=== PATIENT | male | born 1960 | race Caucasian/White ===

== ENCOUNTER → 2016-08-07 | Outpatient (CLI) | payer BC ==
--- NOTE | 2016-08-07 15:01 | DI ---
EXAM: MRI LUMBAR SPINE W/O CONTRAST DATE: 08/07/2016 12:00 AM ENCOUNTER: Initial COMPARISON: 06/14/2015 INDICATION: ITS.REASON: LUMBAR RADICULAR SYNDROME, low back pain with left leg pain and numbness, numbness in the left foot, no known injury TECHNIQUE: Multi-planar multi-weighted magnetic resonance imaging of the lumbar spine was performed without intravenous contrast using the standard lumbar spine protocol. FINDINGS: No acute fracture. Lordosis of the lumbar spine is maintained. No significant spondylolisthesis. Multilevel degenerative disc desiccation with mild disc space height loss inferiorly. Scattered Schmorl's node deformities and intraosseous hemangiomas. No other suspicious marrow replacing process or osseous lesions. The conus terminates at L1. No clumping of intrathecal nerve roots. Limited views of the abdomen and pelvis are unremarkable. Degenerative changes at each level are as follows: L1-L2: No significant disc bulging, spinal canal stenosis, or neural foraminal narrowing. L2-L3: Bilateral facet arthropathy without significant disc bulging, spinal canal stenosis, or neural foraminal narrowing. L3-L4: Unchanged mild disc bulge and facet arthropathy without resulting significant spinal canal stenosis or neural foraminal narrowing. L4-L5: Interval significant improvement/near resolution in the prior focal central disc protrusion with unchanged bilateral facet arthropathy now resulting in mild to moderate left neural foraminal narrowing without significant spinal canal stenosis. L5-S1: Disc bulge with annular tear and interval development of a focal left paracentral disc protrusion resulting in pronounced left lateral recess narrowing with abutment of the traversing left S1 nerve roots. Unchanged facet arthropathy resulting in mild to moderate bilateral neural foraminal narrowing. IMPRESSION: 1. Interval development of a focal left paracentral disc protrusion at L5-S1 resulting in pronounced left lateral recess narrowing with abutment of the traversing left S1 nerve roots. 2. Interval significant improvement/near resolution in the prior focal central disc protrusion at L4-L5 now with no resulting spinal canal stenosis. 3. Unchanged facet arthropathy resulting in mild to moderate left neural foraminal narrowing at L4-L5 and mild to moderate bilateral neural foraminal narrowing at L5-S1. .
== END ==
LOC: IMA 13:31
PROVIDERS: ATTEND Orthopaedic Surgery
DX: M51.17 Intervertebral disc disorders with radiculopathy, lumbosacral region (principal); M47.816 Spondylosis without myelopathy or radiculopathy, lumbar region